=== PATIENT | male | born 1950 | race Caucasian/White ===

== ENCOUNTER → 2023-07-27 | Outpatient (CLI) | payer MEDICARE, MEDICAID ==
[~2023-07-27] MED LIST: BARIUM SULFATE 450ML ORAL SUSP ONE; FINA5TAB11 PO; IOHEXOL-300 100 ML BOTTLE ONE; LISI10TA26 PO; LORA10TA7 PO; METF-873 PO; TAMS-11 PO
== END | disposition home or self-care (01) ==
LOC: CT 07:25
PROVIDERS: ATTEND Internal Medicine Hematology & Oncology
DX: N40.0 Benign prostatic hyperplasia without lower urinary tract symptoms (principal); C18.2 Malignant neoplasm of ascending colon
CPT/HCPCS: 71260; 74177; Q9967